=== PATIENT | female | born 1955 | race Caucasian/White ===

== ENCOUNTER 2016-07-19 12:12 | Emergency (ER) | payer OTHER ==
[~2016-07-19] VITALS: Wt 71.0 kg
--- NOTE | 2016-07-19 13:18 | RADRPT ---
PROCEDURE: XR Chest. CLINICAL INDICATION: Cough TECHNIQUE: Chest PA. COMPARISON: No comparison available. FINDINGS: The mediastinal structures are unremarkable. The heart is normal in size and configuration. The pu lmonary vascularity is normal. The lung hubbard are unremarkable. No consolidation is identified. The pleural spaces are unremarkable. The axial skeleton is unremarkable. IMPRESSION: No active intrathoracic disease. RPTAT: [facility] .Alek Allen MD, MD Date Time Electronically viewed and signed by .Alek Allen MD, on 07/19/2016 13:18 .B/
--- NOTE | 2016-07-19 13:23 | ERD ---
ER Documentation Chief Complaint Date/Time DATE: 07/19/16 TIME: 13:20 Chief Complaint cough for the past 2 months. no fevers. nonproductive HPI This patient is a 60-year-old female with no significant medical history presenting to the emergency department for dry cough which is been ongoing intermittently for 2 months. She has not been coughing up any phlegm or blood. She denies any injury. Additionally she reports a slight pain in her back when she does cough. She has taken no medication at home. She denies any fevers, chills, nausea, vomiting, diarrhea, hemoptysis, or other symptoms. ROS All systems reviewed and are negative except as per history of present illness. PMhx/Soc History of Surgery: No Anesthesia Reaction: No Hx Neurological Disorder: No Hx Respiratory Disorders: No Hx Cardiac Disorders: No Hx Psychiatric Problems: No Hx Miscellaneous Medical Probl: No Hx Alcohol Use: No Hx Substance Use: No Hx Tobacco Use: No FmHx Noncontributory for chief complaint Physical Exam Vitals Vital Signs Date Time Temp Pulse Resp B/P Pulse Ox O2 Delivery O2 Flow Rate FiO2 07/19/16 12:14 98.8 98 20 125/78 98 Physical Exam INITIAL VITAL SIGNS: Reviewed by me. GENERAL: Alert and interactive. No acute distress. HEAD: Head is normocephalic and atraumatic. EYES: EOMI. No scleral icterus. No conjunctival injection. ENT: Moist mucosa. NECK: Supple. Full range of motion. RESPIRATORY: Normal respiratory effort. Clear breath sounds bilaterally. No wheezing, rales, or rhonchi. CV: Regular rate and rhythm. Normal S1 S2. No S3 or S4. No murmurs. ABDOMEN: Soft, non-distended, non-tender. No guarding. No rebound. No masses. EXTREMITIES: No deformity. SKIN: Warm and dry. NEUROLOGIC: Alert and oriented x 4. Speech is normal. Moves all extremities equally. No motor or sensory deficits noted. Procedures/MDM 60-year-old female presents secondary to complaints of cough ongoing for the past 2 months. On physical examination there are no crackles, rales, wheezes, rhonchi, signs of respiratory distress. The patient is 98% on room air. I have ordered a chest x-ray looking for any abnormalities. Chest x-ray interpreted by radiologist: PROCEDURE: XR Chest. CLINICAL INDICATION: Cough TECHNIQUE: Chest PA. COMPARISON: No comparison available. FINDINGS: The mediastinal structures are unremarkable. The heart is normal in size and configuration. The pulmonary vascularity is normal. The lung hubbard are unremarkable. No consolidation is identified. The pleural spaces are unremarkable. The axial skeleton is unremarkable. IMPRESSION: No active intrathoracic disease. Patient is stable for discharge at this time. I have low suspicion for pneumonia, bronchitis, pneumothorax, other cardiopulmonary emergent conditions per she will be treated symptomatically for cough with a prescription for Tessalon Perles patient agrees with the plan and diagnosis and her questions and concerns were addressed. Departure Diagnosis: Primary Impression: Cough Condition: Stable Additional Instructions: No mas mejor en 2-3 koenig, regresar. Mas peor en 24 horas, regresear rapidamente. Ir a doctor primario in 5-7 koenig. Usar instrucciones cuando carol medicamento. MITCHELL DEL VALLE PA-C Jul 19, 2016 13:23
[2016-07-19] MEDS ORDERED: BENZ100C70 PO (13:24)
== END 2016-07-19 13:55 | disposition home or self-care (01) ==
LOC: FTE 12:12
DX: R05 Cough (principal)
CPT/HCPCS: 71010; Z7502

== ENCOUNTER 2017-08-09 10:31 | Emergency (ER) | END 2017-08-09 13:27 | disposition home or self-care (01) ==